=== PATIENT | female | born 1955 | race Caucasian/White ===

== ENCOUNTER 2024-10-30 07:32 | Day surgery (SDC) | payer MEDICARE ==
[2024-10-30] MEDS ORDERED: dexAMETHasone sodium phosphate IJ ONE (07:33)
[2024-10-30] MEDS ORDERED: BUPIVACAINE 0.5% VIAL IJ ONE (07:33)
[2024-10-30] MEDS ORDERED: Lactated Ringers 500 ML IV ONE (07:55)
[2024-10-30] MEDS ORDERED: propofoL IV ONE (09:11)
--- NOTE | 2024-10-30 19:25 | XRAY ---
26 seconds of fluoroscopy was used in surgery for a right C2-C4 MBB.
--- NOTE | 2024-10-30 19:31 | XRAY ---
Indication: Right C2-C4 MBB. Intraoperative fluoroscopy provided for 26 seconds. Single lateral digital spot image submitted for interpretation demonstrates posterior needle tips projecting over presumed right C2-C4 nerve roots. Correlate with intraoperative findings/report.
== END 2024-10-30 09:40 | disposition home or self-care (01) ==
LOC: SDC-PAIN 07:32
PROVIDERS: ATTEND Psychiatry & Neurology Pain Medicine
DX: M47.812 Spondylosis without myelopathy or radiculopathy, cervical region (principal); E11.9 Type 2 diabetes mellitus without complications
CPT/HCPCS: 64490; 64491; 72040; 82947; J1100; J2704

== ENCOUNTER 2024-11-19 12:16 | Day surgery (SDC) | payer MEDICARE ==
[2024-11-19] MEDS ORDERED: BUPIVACAINE 0.5% VIAL IJ ONE (12:17)
[2024-11-19] MEDS ORDERED: LIDOCAINE HCL 1% 50 MG/5 ML VL IJ ONE (12:17)
[2024-11-19] MEDS ORDERED: dexAMETHasone sodium phosphate IJ ONE (12:17)
[2024-11-19] MEDS ORDERED: propofoL IV ONE (15:23)
--- NOTE | 2024-11-19 16:32 | XRAY ---
Indication: Left C2-C4 RFA. Intraoperative fluoroscopy provided for 28 seconds. 5 digital spot image submitted for interpretation demonstrates posterior needle tips projecting over expected left C2-C4 nerve roots. Correlate with intraoperative findings/report.
--- NOTE | 2024-11-19 16:41 | XRAY ---
28 seconds of fluoroscopy was used in surgery for a left C2-C4 RFA.
[2024-11-19] MEDS ORDERED: Lactated Ringers 1,000 ML IV ONE (16:53)
== END 2024-11-19 16:00 | disposition home or self-care (01) ==
LOC: SDC-PAIN 12:16
PROVIDERS: ATTEND Psychiatry & Neurology Pain Medicine
DX: M47.812 Spondylosis without myelopathy or radiculopathy, cervical region (principal); E11.9 Type 2 diabetes mellitus without complications
CPT/HCPCS: 64633; 64634; 72040; 82947; J1100; J2704

== ENCOUNTER 2024-11-20 09:43 | Day surgery (SDC) | payer MEDICARE ==
[2024-11-20] MEDS ORDERED: LIDOCAINE HCL 1% AMPUL 5 ML IJ ONE (09:44)
[2024-11-20] MEDS ORDERED: BUPIVACAINE 0.5% VIAL IJ ONE (09:44)
[2024-11-20] MEDS ORDERED: dexAMETHasone sodium phosphate IJ ONE (09:44)
[2024-11-20] MEDS ORDERED: propofoL IV ONE (11:20)
[2024-11-20] MEDS ORDERED: Lactated Ringers 1,000 ML IV ONE (12:21)
--- NOTE | 2024-11-20 13:19 | XRAY ---
Indication: Right C2-C4 RFA. Intraoperative fluoroscopy for right for 1 minute 3 seconds. 7 digital spot image submitted for interpretation demonstrates posterior needle tips projecting over expected right C2-C4 nerve roots. Correlate with intraoperative findings/report.
--- NOTE | 2024-11-20 14:07 | XRAY ---
1 minute and 3 seconds of fluoroscopy were used in surgery for a right C2-C4 RFA.
== END 2024-11-20 11:58 | disposition home or self-care (01) ==
LOC: SDC-PAIN 09:43
PROVIDERS: ATTEND Psychiatry & Neurology Pain Medicine
DX: M47.812 Spondylosis without myelopathy or radiculopathy, cervical region (principal); E11.9 Type 2 diabetes mellitus without complications
CPT/HCPCS: 64633; 64634; 72040; 82947; J1100; J2704

== ENCOUNTER 2024-12-01 09:39 | Day surgery (SDC) | payer MEDICARE ==
--- NOTE | 2024-11-30 22:33 | HP ---
HISTORY OF PRESENT ILLNESS: A 69-year-old female with abdominal bulge, occasionally aches when leans against something. History of hysterectomy years ago. It has enlarged over the past year. PAST MEDICAL HISTORY: Hypertension, reflux, heartburn in the past, hyperlipidemia, type 2 diabetes, osteoporosis, depression, obesity. PAST SURGICAL HISTORY: CABG in the past, hysterectomy, cardiac catheterization, coronary stents, bilateral foot surgeries, had closed reduction of the wrist in the past, knee arthroscopy in the past. FAMILY HISTORY: Diabetes, heart disease, leukemia. SOCIAL HISTORY: No smoking. No alcohol abuse. MEDICATIONS: Aspirin, milk thistle, magnesium citrate, vitamin D3, fish oil, vitamin E, Oystercal, duloxetine, hydroxyzine, oxybutynin, Prolia, Actemra, telmisartan, atorvastatin, metoprolol, hydrocodone, gabapentin, Repatha, Mounjaro, omeprazole. ALLERGIES: Demerol and tetanus toxoid. REVIEW OF SYSTEMS: Twelve systems reviewed. No chest pain or palpitations. Other systems negative or noncontributory as above and per preadmission questionnaire. PHYSICAL EXAMINATION: GENERAL: Height 4 feet 9 inches. BMI 43. No acute distress. HEENT: Sclerae nonicteric. Extraocular movements intact. NECK: No JVD. CHEST: Equal excursion, nonlabored breathing. CARDIOVASCULAR: Regular rate and rhythm. ABDOMEN: Soft. There is lower epigastric area hernia. EXTREMITIES: No cyanosis or edema. NEUROLOGIC: Alert and oriented, moving all extremities symmetrically. PSYCHIATRIC: Appropriate mood and affect. SKIN: Dry. IMPRESSION: Ventral hernia likely incarcerated fat, increased size and symptoms. I do believe it would be best to have further weight loss but she feels she is having too many symptoms to wait that long. 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 She understands that definitely would have longer term, less risk of recurrence with weight loss, but she is having too much symptoms to wait that long. We discussed options of repair risks not limited to bleeding and infection; risk of hematoma, seroma formation or risk of trocar injury; risk of bowel, bladder, blood loss injury; risk of mesh infection, possible removal; risk or mesh erosion, possibly creating other issues; risk of mesh erosion or failure possibly creating issues of the surrounding structures; risk of morbidity, mortality; risks of aches, pains, burning, numbness, possibly chronic in nature; risk of hernia recurrence; risk of adhesion or scar formation or bowel obstruction; perioperative risk of ileus obstruction; risk of anesthesia; DVT; PE; pneumonia, not limited to. She understands all of the risks of above but not limited to and agrees to planned procedure. Will proceed with outpatient laparoscopic-assisted repair of incarcerated ventral hernia with mesh, possible open. Otherwise, continue medications for heart disease, hypertension, hyperlipidemia, diabetes, depression, and cardiovascular.
[2024-12-01] MEDS ORDERED: Lactated Ringers 1,000 ML IV ONE ×2 (09:46→11:49)
[2024-12-01] MEDS: Lactated Ringers 1,000 ML IV SCH (10:06)
[2024-12-01 10:07] LABS: Absolute Neutrophil Ct (ANC) 1.99 x10^3/uL (1.56-6.13); BASOPHIL % 0.7 % (0.1-1.2); Basophil (Absolute #) 0.03 x10^3/uL (0.01-0.08); Eosinophil (Absolute #) 0.18 x10^3/uL (0.04-0.36); Hematocrit 51.3 % (34.1-44.9); Hemoglobin 16.7 g/dL (11.2-15.7); IMMATURE GRAN # 0.02 x10^3u/L (0.001-0.031); IMMATURE GRAN % 0.4 % (0.001-0.429); Lymphocyte (Absolute #) 1.91 x10^3/uL (1.18-3.74); Mean Cell Volume 92.9 fL (79.4-94.8); Mean Corpuscular Hemoglobin 30.3 pg (25.6-32.2); Mean Corpuscular Hgb Concent. 32.6 g/dL (32.2-35.5); Mean Platelet Volume 10.1 fL (9.4-12.3); Monocyte (Absolute #) 0.42 x10^3/uL (0.24-0.86); Monocytes % 9.2 % (4.7-12.5); Neutrophil % 43.7 % (34.0-71.1); Platelet Count 259 x10^3/uL (182-369); Red Blood Count 5.52 x10^6/uL (3.93-5.22); Red Cell Distribution Width 14.3 % (11.7-14.4); White Blood Count 4.6 x10^3/uL (3.98-10.04)
[2024-12-01 10:17] LABS: ANION GAP 14.1 MEQ/L (5-15); Calcium 10.1 mg/dL (8.4-10.2); Creatinine 1 1.02 mg/dL (0.52-1.04); EST GLOMERULAR FILTRATION RATE 59.2 ML/MIN; Potassium 4.2 mmol/L (3.5-5.1)
[2024-12-01] MEDS: CEFAZOLIN 2 GM/100 ML NaCl 2 GM/100 ML IVPB IV SCH (10:52)
[2024-12-01] MEDS ORDERED: propofoL IV ONE (11:35)
[2024-12-01] MEDS ORDERED: dexAMETHasone sodium phosphate ONE (11:35)
[2024-12-01] MEDS ORDERED: ROCURONIUM BROMIDE IV ONE ×2 (11:35→13:14)
[2024-12-01] MEDS ORDERED: Zofran 4 MG/2 ML VIAL ONE ×2 (11:35→14:38)
[2024-12-01] MEDS ORDERED: SUBLIMAZE 100 MCG/2 ML ONE ×2 (11:42→14:16)
[2024-12-01] MEDS ORDERED: Sensorcaine 0.25% 10 ML ONE (11:49)
[2024-12-01] MEDS ORDERED: Naropin 0.5% 30 ML VIAL ONE (13:35)
[2024-12-01] MEDS ORDERED: BRIDION 200MG/2ML IV ONE (13:53)
[2024-12-01] MEDS ORDERED: DILAUDID 0.5 MG/0.5 ML SYRINGE ONE ×3 (14:07→15:02)
[2024-12-01 15:01] LABS: Appearance Clear (Clear); Bacteria None Seen /HPF (None Seen); Bilirubin Negative (Negative); Blood Negative (Negative); Epithelial Cells None Seen /HPF (None Seen); Glucose, Urine Negative (Negative); Hyaline Casts NONE SEEN /LPF (0-2); Ketones Negative (Negative); Leukocyte Esterase Trace (Negative); Nitrite Negative (Negative); Protein,Urine Dip Negative (Negative); RBC 0-2 /HPF (0-5); Urobilinogen 0.2 mg/dL (0.2)
[2024-12-01] MEDS ORDERED: Zofran 4 MG/2 ML VIAL IV PRN (16:07)
[2024-12-01 16:21] VITALS: RESP 16
[2024-12-01 19:55] VITALS: O2SAT 95
[2024-12-01] MEDS ORDERED: MORPHINE SULFATE 4 MG INJ ONE (19:55)
[2024-12-01] MEDS: MORPHINE SULFATE 4 MG INJ IV PRN (19:58)
[2024-12-01] MEDS: NORCO 5/325 MG PO PRN (20:44)
[2024-12-01 20:45] VITALS: BP 125/60; PULSE 77; TEMP 98.6
--- NOTE | 2024-12-02 10:52 | OP ---
SURGERY DATE/TIME: 12/01/2024 [id number] PREOPERATIVE DIAGNOSIS: Incarcerated ventral hernia, obesity. POSTOPERATIVE DIAGNOSIS: Incarcerated ventral hernia, obesity. PROCEDURE: Laparoscopic-assisted repair of incarcerated ventral hernia with mesh (span at least 5 cm). SURGEON: Jorge Muse MD. ANESTHESIA: General. ESTIMATED BLOOD LOSS: Minimal. INDICATIONS: Consent obtained. DESCRIPTION OF PROCEDURE AND FINDINGS: Patient taken to the operating room. General anesthesia induced. Prepped and draped in usual sterile fashion. After official time-out and no disagreement in planned procedure, a transverse incision made left costal margin, fascia grasped, pulled up where Veress needle inserted, tested with saline. Pneumoperitoneum accomplished with an opening pressure of 0-15. A 5 mm bladeless port and camera were inserted without difficulty. Left lower quadrant 5 mm, left lateral mid abdomen 5 mm port, and right lateral mid abdomen port were placed under direct vision with the camera. At this point, preperitoneal space was entered. Dissection was carried through the preperitoneal space, clearing up through the area where there was a very large amount of omentum incarcerated, at least 5 cm defect. This took quite some time but slowly, carefully this was able to be reduced out and the hernia sac pulled downward. It was finally all reduced. At this point, the defect was measured. It was at least 5 cm. [place] that [address] Echo mesh the most appropriate size mesh. Peritoneum was thinned out below the dissection, had been carried down to the preperitoneal plane, it was felt Echo mesh would be safer to use. It had been marked on the abdomen. Four-quadrant 0 Ethibonds placed and at this point transverse incision made, dissection carried down to the hernia sac and around the hernia sac with the suture passer #1 Vicryls were placed about 1 cm apart. These were temporarily tagged with the 12 port placed through the defect and the mesh, wet and rolled, then placed in the abdomen. Port was removed. Pressure turned down to 8. The transfascial sutures were secured, bringing the fascia back to the midline with #1 Vicryl. Once this was accomplished, the wound catheter was pulled up through the center portion of the defect. The balloon was then inflated and the 4-quadrant 0 Ethibonds were pulled up through 4 stab wounds then tied transfascial. Once this was accomplished, the mesh was then tacked circumferentially around. I did place 1 CapSure tack in the middle between each Ethibond suture on the periphery and then placed some SorbaFix tacks 1 cm apart around the periphery between. To reduce any space, SorbaFix was used to tack more centrally in a few spots. Mesh was nice and flat in a tension-free manner. This was all done with the pressure having been turned down to 8. At this point, the omentum was carefully inspected. Good hemostasis noted, appeared to be viable, so none of it needed to be discarded at this point. There had been no visceral issue secondary to the port or Veress needle placement. Good hemostasis noted. At this point, ports removed. Pneumoperitoneum decompressed. Subcutaneous closed with 3-0 Vicryl where the mesh had been dropped down. The skin closed with 4-0 Vicryl. The 4 ports sites were closed with 4-0 Vicryl in the skin. The stab wounds were closed with Steri-Strips. Anesthesia placed TAP block. The patient tolerated the procedure well. There were no immediate complications.
== END 2024-12-01 20:50 | disposition home or self-care (01) ==
LOC: SDC 09:39 → MED SURG 16:02 → SDC 20:50
PROVIDERS: ATTEND Surgery
DX: K43.6 Other and unspecified ventral hernia with obstruction, without gangrene (principal); E66.9 Obesity, unspecified; I10 Essential (primary) hypertension; E11.9 Type 2 diabetes mellitus without complications; Z80.6 Family history of leukemia
CPT/HCPCS: 36415; 76937; 80048; 81001; 83036; 85025; 87086; 94760; J0690; J1100; J1171; J2270; J2405; J2704; J2795; J3010; L0625; A9270-GY; C1781

== ENCOUNTER 2025-04-30 14:34 | Emergency (ER) | payer MEDICARE ==
[2025-04-30 14:50] VITALS: TEMP 97
--- NOTE | 2025-04-30 15:00 | ERPHSYRPT ---
- History of Present Illness Patient Subjective Stated Complaint: pt fell on the concrete while going into the [place] and hit her right brow and left knee Triage Nursing Assessment: Pt brought to the ER by EMS, vitals wnl, rates pain as 5/10 as long as she isn't moving it, pulses normal, skin n/w/d, denies LOC, denies N&V, left knee bruising and swelling, abrasion to the right elbow, bruising to the right brow, pt usually is on blood thinners but has been off of them for 5 days due to going to have a gallbladder surgery on Sunday, denies any other injuries, doesn't appear to be in any distress Allergies/Adverse Reactions: meperidine HCl [From Demerol] Allergy (Severe, Verified 04/30/25 14:50) "makes me deathly ill" Tetanus Vaccines and Toxoid [Tetanus Vaccines & Toxoid] Allergy (Severe, Verified 04/30/25 14:50) unable to move body Home Medications: Metoprolol Tartrate 25 mg [Lopressor 25MG Tab] 50 mg PO BID 01/31/22 [History] Duloxetine HCl 60 mg PO DAILY 08/15/22 [History] Atorvastatin Calcium 40 mg PO DAILY 09/11/22 [History] Telmisartan 80 mg [Micardis 80 MG Tablet] 80 mg PO DAILY 09/11/22 [History] Gabapentin 300 mg PO TID 08/13/23 [History] Aspirin [Aspirin EC] 81 mg PO DAILY 11/27/24 [History] Calcium Carbonate [Oyster Shell Calcium] 500 mg PO DAILY 11/27/24 [History] Cholecalciferol (Vitamin D3) [Vitamin D3] 2,000 units PO DAILY 11/27/24 [History] Denosumab [Prolia] 60 mg SQ .[id number] 11/27/24 [History] Evolocumab [Repatha Syringe] 140 mg SQ .BIWEEKLY 11/27/24 [History] Magnesium Citrate 100 mg PO BID 11/27/24 [History] Milk Thistle 500 mg PO DAILY 11/27/24 [History] [place]-3/Dha/Epa/Fish Oil [Fish Oil 1,000 mg Softgel] 1,000 mg PO DAILY 11/27/24 [History] Omeprazole 40 mg PO DAILY 11/27/24 [History] Oxybutynin Chloride [Oxybutynin Chloride ER] 5 mg PO DAILY 11/27/24 [History] Tirzepatide [Mounjaro] 12.5 mg SQ WEEKLY 11/27/24 [History] Tocilizumab [Actemra] 162 mg IV .MONTHLY 11/27/24 [History] Vitamin E (Dl,Tocopheryl Acet) [Vitamin E] 400 mg PO DAILY 11/27/24 [History] Hydrocodone/Acetaminophen [Hydrocodone-Acetamin 7.5-325] 1 tab PO BID PRN MDD 5 04/30/25 [History] Hydroxyzine HCl 25 mg [Atarax 25 mg] 25 mg PO DAILY 04/30/25 [History] Hx Tetanus, Diphtheria Vaccination/Date Given: Yes Hx Influenza Vaccination/Date Given: Yes Hx Pneumococcal Vaccination/Date Given: No Travel Risk - International Travel Have you traveled outside of the country in past 3 weeks: No - Emerging Infectious Disease Are you exhibiting symptoms associated with any current EIDs: No - Past Medical History Pertinent Past Medical History: Yes Neurological History: No Pertinent History ENT History: Cataracts Cardiac History: High Cholesterol, Hypertension, Myocardial Infarction ([place]) Respiratory History: Sleep Apnea, Other Endocrine Medical History: Diabetes Type II Musculoskeletal History: Osteoporosis, Rheumatoid Arthritis, Other GI Medical History: Cirrhosis, GERD, Hernia, Other History: Other Psycho-Social History: Depression Female Reproductive Disorders: Endometriosis, Other Other Medical History: lungs function at 79%, removal of one ovary, [place]- 1998; utilizes cpap at night; liver problems; - Past Surgical History Past Surgical History: Yes Neuro Surgical History: No Pertinent History Cardiac: CABG, Cardiac Catheterization, Cardiac Stent Respiratory: No Pertinent History Gastrointestinal: No Pertinent History Genitourinary: No Pertinent History Musculoskeletal: Orthopedic Surgery Female Surgical History: Hysterectomy Other Surgical History: Lead Embedded Software Engineer-Jeni; triple bypass; cadiac stent x2; Right knee x2, right foot, x3 left foot, right wrist. Lung Specialist-Dion - Social History Smoking Status: Never smoker Exposure to second hand smoke: No Drug Use: none - Social Determinants of Health Will the patient participate in the screening: Yes Do you worry about a steady place to live?: No Do you have any problems with any of the following?: No known problems In the past 12 months,have you had to go without utilities?: No Transportation Issues: No Has anyone in your support network made you feel unsafe?: No Have you or anyone in your house had to go w/o enough food: No - Nursing Vital Signs Nursing Vital Signs: Initial Vital Signs Temperature 97.0 F 04/30/25 14:39 Pulse Rate 78 04/30/25 14:39 Respiratory Rate 16 04/30/25 14:39 Blood Pressure 125/67 04/30/25 14:39 O2 Sat by Pulse Oximetry 96 04/30/25 14:39 Pain Scale Pain Intensity 5 - Physical Exam SpO2: 96 Ordered Tests: Active Orders 24 hr Category Date Time Status HEAD WITHOUT CONTRAST [CT] Stat Exams 04/30/25 15:00 Completed KNEE (3 VIEWS) Stat Exams 04/30/25 15:01 Completed Lab/Rad Data: [place] [id number] [facility], [address] [place], [place] [address] Name: JOSE SAEED Attending Physician: FAY VARGAS IMAG[facility] REPORT : 1955 Age: 70 Sex: F Location: ED Report #: [id number] Exam Date: 04/30/25 Status: REG ER Radiology #: Procedures: [id number] CT/HEAD WITHOUT CONTRAST Indication: Trauma. Fall. Multiple contiguous axial images obtained through the head without contrast. Comparison: None Age-appropriate global atrophy, mild periventricular degenerative micro ischemia bilaterally, and bilateral basal ganglia remote lacunar infarcts. No acute intracranial hemorrhage, abnormal extra-axial fluid collection, or mass effect. 4th ventricle is midline without hydrocephalus. Bony calvarium intact. Visualized paranasal sinuses and mastoid air cells are clear. 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 Reported by: CHARLINE MCCOLLUM DO Signed by: CHARLINE MCCOLLUM DO Signed date/time: 04/30/25 1620 Copies to: RADHA YIP COBY Knee x-ray showed no acute fracture. There is a small effusion. - Progress Progress: unchanged Progress Note: 04/30/25 16:[address] read as no acute injury. The x-ray was small effusion. Patient was reexamined. She has significant pain in the knee. She will be nonweightbearing and will follow with Ortho. Will ice limit activity of the knee given knee contusion.Given head injury instructions all questions were answered. - Departure Clinical Impression: Contusion of knee Condition: Stable Critical Care Time: No Referrals: RADHA YIP DO [Primary Care Provider, [facility]] - Follow up/PCP as directed Additional Instructions: For any worsening headache nausea vomiting balance issues or concerns. No fracture was seen to the knee. Ice it. Use Roly wrap. Follow-up with Ortho for recheck if unable to ambulate normally when swelling resolves in 1 to 2 days.
[2025-04-30 15:43] VITALS: PULSE 80; RESP 15
--- NOTE | 2025-04-30 16:20 | XRAY ---
Indication: Trauma. Fall. Multiple contiguous axial images obtained through the head without contrast. Comparison: None Age-appropriate global atrophy, mild periventricular degenerative micro ischemia bilaterally, and bilateral basal ganglia remote lacunar infarcts. No acute intracranial hemorrhage, abnormal extra-axial fluid collection, or mass effect. 4th ventricle is midline without hydrocephalus. Bony calvarium intact. Visualized paranasal sinuses and mastoid air cells are clear. 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
--- NOTE | 2025-04-30 16:32 | XRAY ---
Indication: Trauma. Pain following fall. Comparison: July 28, 2020 3 portable views left knee demonstrates new small nonspecific effusion. Remaining knee unchanged again with osteopenia, minimal/mild tricompartmental degenerative changes, 4 mm medial condyle bone island, and diffuse scattered vascular calcifications with medial subcutaneous vascular clips.
[2025-04-30 16:51] VITALS: O2SAT 96
[2025-04-30] MEDS ORDERED: PERCOCET TABLET 5/325MG ONE (17:01)
[2025-04-30] MEDS: PERCOCET TABLET 5/325MG PO STA (17:04)
[2025-04-30 17:38] VITALS: BP 141/67
== END 2025-04-30 17:46 | disposition home or self-care (01) ==
LOC: ED 14:34
DX: S80.02XA Contusion of left knee, initial encounter (principal); W18.30XA Fall on same level, unspecified, initial encounter; I10 Essential (primary) hypertension; E11.9 Type 2 diabetes mellitus without complications; Z79.891 Long term (current) use of opiate analgesic; Z79.85 Long-term (current) use of injectable non-insulin antidiabetic drugs; Z79.899 Other long term (current) drug therapy